=== PATIENT | male | born 1960 ===

== ENCOUNTER 2020-01-01 23:34 | Emergency (ER) | payer MEDICARE, MEDICAID ==
[~2020-01-01] VITALS: Ht 193 cm; Wt 90.0 kg
[2020-01-02 00:19] LABS: BASOPHILS % (AUTO) 1 % (0-1); EOSINOPHILS % (AUTO) 1 % (1-7); LYMPHOCYTES % (AUTO) 8 % (22-44); MEAN CORPUSCULAR HEMOGLOBIN 29.9 pg (27.5-34.5); MEAN CORPUSCULAR HGB CONC 31.5 g/dL (33.2-36.2); MEAN PLATELET VOLUME 7.8 fL (7.4-10.4); MONOCYTES % (AUTO) 13 % (2-9); NEUTROPHILS % (AUTO) 77 % (42-75); PLATELET COUNT 258 x10^3/uL (130-400); RED BLOOD COUNT 3.42 x10^6/uL (4.38-5.82); RED CELL DISTRIBUTION WIDTH 23.8 % (9.4-14.8)
[2020-01-02 00:32] LABS: INTERNATIONAL NORMALIZED RATIO 1.38 (0.93-1.1); PROTHROMBIN TIME 14.6 Seconds (9.6-11.5)
[2020-01-02 00:43] LABS: ALANINE AMINOTRANSFERASE 12 U/L (12-78); ALBUMIN 2.6 g/dL (3.4-5.0); ALKALINE PHOSPHATASE 134 U/L (45-117); ANION GAP 9 mmol/L (5-15); BILIRUBIN,TOTAL 1.3 mg/dL (0.2-1.0); CALCIUM 8.3 mg/dL (8.5-10.1); CHLORIDE 93 mmol/L (98-107); TOTAL PROTEIN 9.3 g/dL (6.4-8.2)
--- NOTE | 2020-01-02 01:01 | NUR ---
BIB [facility] FROM [facility]F FOR GLF AND ALTERED MENTAL STATUS. PT S/P CARDIAC ARREST 3 MONTHS AGO. PT WAS FOUND ON THE GROUND WITH EPISODE OF UNCONSCIOUSNESS BY [facility] STAFF. PT PLACED IN HOSPITAL GOWN AND BED RAILS UP X 2. CALL LIGHT WITH IN REACH.
[2020-01-02 01:04] LABS: ANISOCYTOSIS 1+; MD MORPH REVIEW ONLY
[2020-01-02 01:06] LABS: MICROCYTOSIS 1+
[2020-01-02 01:07] LABS: HYPOCHROMIA 1+; POLYCHROMASIA 1+; TARGET CELLS 1+
--- NOTE | 2020-01-02 01:23 | NUR ---
PT NOW MORE ALERT AND CONVERSING APPROPRAITELY WITH ME.
[2020-01-02 01:32] VITALS: BP 119/76
--- NOTE | 2020-01-02 01:34 | NUR ---
PT ER MD PARKER, DO NOT COLLECT URINE SAMPLE
--- NOTE | 2020-01-02 02:22 | NUR ---
PHONE REPORT TO [facility] AT [facility].
[2020-01-02 02:44] LABS: <PLATELET ESTIMATE> ADEQUATE; <PLT MORPHOLOGY> NORMAL PLT MORPH
== END 2020-01-02 03:04 | disposition home or self-care (01) ==
LOC: ED 01-02 01:50
DX: S09.90XA Unspecified injury of head, initial encounter (principal); N18.9 Chronic kidney disease, unspecified; D64.9 Anemia, unspecified; I44.0 Atrioventricular block, first degree; W06.XXXA Fall from bed, initial encounter; Y93.89 Activity, other specified; Y92.89 Other specified places as the place of occurrence of the external cause; Y99.8 Other external cause status
CPT/HCPCS: 36415; 70450; 71045; 72125; 80053; 84484; 85025; 85610; 85730; 87040; 93005; 99285

== ENCOUNTER 2020-01-04 02:13 | Emergency (ER) | payer MEDICARE, MEDICAID ==
--- NOTE | 2020-01-04 04:09 | NUR ---
Report called to facility at [facility]. Pt to return via ambulance. VSS.
--- NOTE | 2020-01-04 05:05 | NUR ---
WAITING FOR TRANSPORTATION. VSS. PT SLEEPING
[2020-01-04 07:10] VITALS: BP 129/79
--- NOTE | 2020-01-04 07:10 | NUR ---
RECEIVED REPORT FROM OMER RICCI RN. PT SLEEPING ON GURCROW AGENCY. CATRACHITA. VSS. PT TO BE DC'D FROM [facility] BACK TO FACILITY VIA EMS. AWAITING EMS TRANSPORT. PT HAS PEG TUBE IN PLACE. NO DIET TRAY ORDERED FOR PT.
--- NOTE | 2020-01-04 07:39 | NUR ---
lili RN note: this RN spoke with [facility] and plant safety leader Shruthi, per Shruthi, accepting doctor is Ju Leon. Updated report given to Shruthi ELIAS, RN notified pt will be en route shortly.
== END 2020-01-04 07:46 | disposition home or self-care (01) ==
LOC: ED 02:40
DX: S06.0X0A Concussion without loss of consciousness, initial encounter (principal); N18.9 Chronic kidney disease, unspecified; Z86.73 Personal history of transient ischemic attack (TIA), and cerebral infarction without residual deficits; W06.XXXA Fall from bed, initial encounter; Y93.89 Activity, other specified; Y92.009 Unspecified place in unspecified non-institutional (private) residence as the place of occurrence of the external cause; Y99.8 Other external cause status
CPT/HCPCS: 70450; 99284